=== PATIENT | male | born 1955 | race Caucasian/White ===

== ENCOUNTER → 2017-02-13 | Outpatient (CLI) | payer BC, OTHER ==
[~2017-02-13] MED LIST: PRAVACHOL10 MG PO; PREDNISONE1 MG PO
== END ==
LOC: COL.VAS 15:32
DX: I82.621 Acute embolism and thrombosis of deep veins of right upper extremity (principal); Z95.828 Presence of other vascular implants and grafts

== ENCOUNTER → 2017-03-05 | Outpatient (CLI) | payer BC, OTHER | LOC: COL.VAS 09:00 | DX: I82.611 Acute embolism and thrombosis of superficial veins of right upper extremity (principal); C21.0 Malignant neoplasm of anus, unspecified; M79.89 Other specified soft tissue disorders ==

== ENCOUNTER 2017-10-16 12:33 | Day surgery (SDC) | payer BC, OTHER ==
[~2017-10-16] VITALS: Ht 177.8 cm; Wt 76.7 kg
[2017-10-16 13:03] VITALS: BP 122/81; PULSE 76; TEMP 97.2
[2017-10-16] MEDS ORDERED: CENTRUM SILVER1 TAB PO (13:06)
[2017-10-16 14:54] VITALS: BP 115/74; PULSE 85; TEMP 97.4
[2017-10-16 15:10] VITALS: BP 112/75; PULSE 69
[2017-10-16 15:25] VITALS: BP 113/76; PULSE 73
== END 2017-10-16 15:40 | disposition home or self-care (01) ==
LOC: SDCO 12:33
DX: R94.8 Abnormal results of function studies of other organs and systems (principal); Z85.048 Personal history of other malignant neoplasm of rectum, rectosigmoid junction, and anus; E78.00 Pure hypercholesterolemia, unspecified
CPT/HCPCS: J2250; J3010; J7030

== ENCOUNTER → 2020-06-23 | Outpatient (CLI) | payer BC, OTHER ==
[~2020-06-23] MED LIST changes: +CENTRUM SILVER1 TAB PO
[2020-06-23 14:24] LABS: HEMATOCRIT 44.6 % (42.0-52.0); HEMOGLOBIN 14.9 g/dl (13.5-18.0); MEAN CELL VOLUME 92 fl (80.0-100.0); MEAN CORPUSCULAR HEMOGLOBIN 31 pg (27.0-31.0); MEAN CORPUSCULAR HGB CONC 33 g/dl (33.0-37.0); MEAN PLATELET VOLUME 8.9 fl (7.4-10.4); PLATELET COUNT 207 K/mm3 (130-400); RED BLOOD COUNT 4.86 M/mm3 (4.20-5.60); REDCELL DISTRIBUTION WIDTH-CV 13.2 % (11.5-14.5)
[2020-06-23 14:32] LABS: ALBUMIN 4.4 gm/dL (3.5-5.0); BILIRUBIN,TOTAL 0.5 mg/dL (0.0-1.0); CALCIUM 9.7 mg/dL (8.4-10.2); CREATININE, serum 1.18 (0.66-1.25); POTASSIUM 4.4 mmol/L (3.4-5.0); TOTAL PROTEIN 8.6 gm/dL (6.4-8.2)
== END ==
LOC: COL.LAB 13:29
DX: C21.0 Malignant neoplasm of anus, unspecified (principal)

== ENCOUNTER 2021-11-19 10:03 | Emergency (ER) | payer BC, OTHER ==
[~2021-11-19] VITALS: Ht 170.2 cm; Wt 80.9 kg
[2021-11-19] MEDS ORDERED: NAPROSYN500 MG PO (12:17)
[2021-11-19 12:34] VITALS: BP 122/69; PULSE 86
== END 2021-11-19 12:35 | disposition home or self-care (01) ==
LOC: COL.ER 10:03
DX: M25.571 Pain in right ankle and joints of right foot (principal); Z28.310 Unvaccinated for COVID-19